=== PATIENT | female | born 1955 | race African-American/Black ===

== ENCOUNTER 2018-02-15 22:06 | Emergency (ER) | payer OTHER, SELFPAY ==
[2018-02-15 23:49] LABS: #Basophils 0.1 thou/uL (0.0-0.2); #Eosinphils 0.1 thou/uL (0.0-0.7); #Lymphocytes 3.3 thou/uL (1.20-3.40); #Monocytes 0.5 thou/uL (0.11-0.59); #Neutrophils 3.7 thou/uL (1.40-6.50); %Basophils 1.3 % (0.0-1.0); %Eosinophils 1.3 % (0.0-10.0); %Monocytes 6.9 % (0.0-10.0); %Neutrophils 47.6 % (42.0-75.0); Hemoglobin 12.5 g/dL (12.0-16.0); Mean Corpuscular HGB CONC 33.5 g/dL (32.0-36.0); Mean Corpuscular Hemoglobin 27.2 pg (27.0-31.0); Mean Corpuscular Volume 81.1 fL (78.0-98.0); Platelet Count 341 thou/uL (130-400); RBC Distribution Width 11.4 % (11.5-14.5); White Blood Cell (WBC) Count 7.7 thou/uL (4.8-10.8)
[2018-02-16 00:11] LABS: Anion Gap 15 mmol/L (10-20); BUN (Urea Nitrogen) 13 mg/dL (9.8-20.1); Calc. Creatinine Clearance 0 mL/min (70-130); Calcium 10.2 mg/dL (7.8-10.44); Carbon Dioxide 27 mmol/L (22-29); Chloride 96 mmol/L (98-107); Estimated GFR-MDRD 85; Glucose 283 mg/dL (70-105); Potassium 4.1 mmol/L (3.5-5.1); Sodium 134 mmol/L (136-145)
== END 2018-02-16 01:03 | disposition home or self-care (01) ==
LOC: ERS 22:06
DX: E11.65 Type 2 diabetes mellitus with hyperglycemia (principal); R20.2 Paresthesia of skin; E11.9 Type 2 diabetes mellitus without complications; I25.10 Atherosclerotic heart disease of native coronary artery without angina pectoris; F32.9 Major depressive disorder, single episode, unspecified; Z79.4 Long term (current) use of insulin
CPT/HCPCS: 36415; 36416; 80048; 85025; 99284

== ENCOUNTER 2021-04-11 15:36 | Emergency (ER) | payer SELFPAY ==
[2021-04-11 16:15] LABS: #Basophils 0.1 thou/uL (0.0-0.2); #Eosinphils 0.2 thou/uL (0.0-0.7); #Lymphocytes 5.2 thou/uL (1.20-3.40); #Neutrophils 7.4 thou/uL (1.40-6.50); %Basophils 0.4 % (0.0-1.0); %Eosinophils 1.4 % (0.0-10.0); %Lymphocytes 37.8 % (21.0-51.0); %Neutrophils 53.4 % (42.0-75.0); Mean Corpuscular HGB CONC 33.1 g/dL (32.0-36.0); Mean Corpuscular Hemoglobin 27.2 pg (27.0-31.0); Mean Corpuscular Volume 82.3 fL (78.0-98.0); Mean Platelet Volume 7.9 fL (7.4-10.4); Platelet Count 412 thou/uL (130-400); RBC Distribution Width 11.6 % (11.5-14.5); Red Blood Cell (RBC) Count 4.05 mill/uL (4.20-5.40); White Blood Cell (WBC) Count 13.8 thou/uL (4.8-10.8)
[2021-04-11 16:37] LABS: ALT (SGPT) 7 U/L (8-55); AST (SGOT) 8 U/L (5-34); Alkaline Phosphatase 87 U/L (40-110); Anion Gap 15 mmol/L (10-20); BUN (Urea Nitrogen) 15 mg/dL (9.8-20.1); Bilirubin, Total 0.2 mg/dL (0.2-1.2); Calc. Creatinine Clearance 0 mL/min (70-130); Carbon Dioxide 27 mmol/L (23-31); Chloride 101 mmol/L (98-107); Globulin 3.9 g/dL (2.4-3.5); Glucose 243 mg/dL (80-115); Potassium 4.5 mmol/L (3.5-5.1); Protein, Total 7.9 g/dL (5.8-8.1); Sodium 138 mmol/L (136-145)
[2021-04-11] MEDS ORDERED: cefTRIAXone\\ROCEPHIN 1 GM VIAL ONE (18:21)
== END 2021-04-11 20:07 | disposition home or self-care (01) ==
LOC: ERS 15:36
DX: L03.032 Cellulitis of left toe (principal); E11.65 Type 2 diabetes mellitus with hyperglycemia; Z79.899 Other long term (current) drug therapy; Z79.82 Long term (current) use of aspirin; I10 Essential (primary) hypertension
CPT/HCPCS: 36415; 80053; 83605; 85025; 96365; J0696

== ENCOUNTER 2021-04-28 08:09 | Emergency (ER) | payer SELFPAY ==
[2021-04-28] MEDS ORDERED: Ondansetron ODT 8 MG TAB ONE (08:34)
== END 2021-04-28 11:25 | disposition home or self-care (01) ==
LOC: ERS 08:09
DX: E11.65 Type 2 diabetes mellitus with hyperglycemia (principal); E11.621 Type 2 diabetes mellitus with foot ulcer; L97.529 Non-pressure chronic ulcer of other part of left foot with unspecified severity; R11.2 Nausea with vomiting, unspecified; I10 Essential (primary) hypertension; I25.10 Atherosclerotic heart disease of native coronary artery without angina pectoris
CPT/HCPCS: 36416; 74018; Q0162

== ENCOUNTER 2021-05-04 11:11 | Inpatient (IN) | payer SELFPAY ==
[2021-05-04 12:29] LABS: #Eosinphils 0.1 thou/uL (0.0-0.7); #Lymphocytes 2.3 thou/uL (1.20-3.40); #Monocytes 0.7 thou/uL (0.11-0.59); #Neutrophils 5.6 thou/uL (1.40-6.50); %Basophils 0.5 % (0.0-1.0); %Eosinophils 0.8 % (0.0-10.0); %Lymphocytes 26.8 % (21.0-51.0); %Monocytes 7.7 % (0.0-10.0); %Neutrophils 64.2 % (42.0-75.0); Hemoglobin 9.8 g/dL (12.0-16.0); Mean Corpuscular HGB CONC 33.6 g/dL (32.0-36.0); Mean Corpuscular Hemoglobin 27.1 pg (27.0-31.0); Mean Corpuscular Volume 80.8 fL (78.0-98.0); Mean Platelet Volume 7.8 fL (7.4-10.4); Platelet Count 438 thou/uL (130-400); RBC Distribution Width 11.4 % (11.5-14.5); Red Blood Cell (RBC) Count 3.62 mill/uL (4.20-5.40); White Blood Cell (WBC) Count 8.7 thou/uL (4.8-10.8)
[2021-05-04 12:35] LABS: Anion Gap 12 mmol/L (10-20); BUN (Urea Nitrogen) 30 mg/dL (9.8-20.1); Calc. Creatinine Clearance 0 mL/min (70-130); Calcium 9.7 mg/dL (7.8-10.44); Carbon Dioxide 24 mmol/L (23-31); Chloride 95 mmol/L (98-107); Glucose 205 mg/dL (80-115); Sodium 126 mmol/L (136-145)
[2021-05-04] MEDS ORDERED: HYDROcodone/Acetaminophen 5/325 mg Tablet ONE (14:14)
[2021-05-04] MEDS ORDERED: cefTRIAXone\\ROCEPHIN 1 GM VIAL ONE (14:14)
[2021-05-04] MEDS ORDERED: Ondansetron PF 4 MG/2 ML Vial IVP PRN (14:48)
[2021-05-04] MEDS ORDERED: Acetaminophen 325 MG TAB PO PRN (16:45)
[2021-05-04 16:53] LABS: SARS-CoV-2 NAA Rapid Test Not Detected (NotDetected)
[2021-05-04] MEDS ORDERED: Enoxaparin Sodium 40 MG/0.4 ML SYRINGE SC SCH (17:00)
[2021-05-04] MEDS ORDERED: Cefepime 2 GM in Sodium Chloride 0.9% 100 ML IVPB SCH (17:30)
[2021-05-04 18:20] VITALS: BMI 27.0
[2021-05-04] MEDS: Sodium Chloride 0.9% 1,000 ML IV SCH (18:53)
[2021-05-04] MEDS ORDERED: VANCOMYCIN 1.25 GM/250 ML BAG 1.25 GM in Premix Bag 1 BAG IVPB SCH (20:00)
[2021-05-04] MEDS ORDERED: Dicyclomine 10 MG CAP PO SCH (22:00)
[2021-05-04] MEDS ORDERED: Docusate 100 MG CAP PO SCH (22:00)
[2021-05-05] MEDS: Sodium Chloride 0.9% 1,000 ML IV SCH ×3 (05:23→20:05)
[2021-05-05] MEDS: Cefepime 2 GM in Sodium Chloride 0.9% 100 ML IVPB SCH ×2 (06:01→17:49)
[2021-05-05] MEDS: Docusate 100 MG CAP PO SCH ×2 (08:31→20:09)
[2021-05-05] MEDS: Enoxaparin Sodium 40 MG/0.4 ML SYRINGE SC SCH (08:35)
[2021-05-05 09:29] LABS: Hemoglobin A1c 9.6 % (4.0-6.0)
[2021-05-05 12:49] LABS: Iron Binding Capacity, Total 268 mcg/dL (265-497)
[2021-05-05 12:50] LABS: Iron 64 ug/dL (50-170)
[2021-05-05 12:59] LABS: Anion Gap 13 mmol/L (10-20); BUN (Urea Nitrogen) 17 mg/dL (9.8-20.1); Calc. Creatinine Clearance 56 mL/min (70-130); Calcium 9.8 mg/dL (7.8-10.44); Carbon Dioxide 21 mmol/L (23-31); Chloride 106 mmol/L (98-107); Glucose 190 mg/dL (80-115); Iron 66 ug/dL (50-170); Iron Binding Capacity, Total 275 mcg/dL (265-497); Potassium 5.3 mmol/L (3.5-5.1); Sodium 135 mmol/L (136-145)
[2021-05-05] MEDS ORDERED: Fentanyl 100 MCG/2 ML VIAL ONE ×2 (13:22→14:16)
[2021-05-05] MEDS ORDERED: PHENYLEPHRINE-NS 100 MCG/ML 10 ML SYRINGE ONE (13:34)
[2021-05-05] MEDS ORDERED: Lidocaine 1% PF 5 ML VIAL ONE (13:34)
[2021-05-05] MEDS ORDERED: PROPOFOL 200 MG/20 ML VIAL ONE (13:34)
[2021-05-05] MEDS ORDERED: Lidocaine 1% w/Epinephrine 1:100K 20 ML VIAL ONE (13:44)
[2021-05-05] MEDS ORDERED: Bupivacaine PF 0.5% 30 ML VIAL ONE (13:44)
[2021-05-05] MEDS ORDERED: Propofol 500 MG/50 ML VIAL ONE (13:46)
[2021-05-05] MEDS ORDERED: Promethazine HCl 25 MG/ML VIAL IVPB PRN (14:07)
[2021-05-05] MEDS ORDERED: Ondansetron HCl/PF 4 MG/2 ML Vial IVP PRN (14:07)
[2021-05-05] MEDS ORDERED: Promethazine HCl 25 MG/ML VIAL IM PRN (14:07)
[2021-05-05] MEDS: traMADol HCl 50 MG TAB PO PRN ×2 (16:22→20:06)
[2021-05-05] MEDS ORDERED: Dextrose 50% Abboject 50 ML SYRINGE SLOW IVP PRN (16:33)
[2021-05-05] MEDS ORDERED: Dextrose 5% in Water 1,000 ML IV PRN (16:33)
[2021-05-05] MEDS: HumaLOG 300 UNITS/3 ML VIAL SC PRN (17:31)
[2021-05-05 18:28] LABS: Vancomycin, Random Less than 1.1 ug/mL (See Comment)
[2021-05-05] MEDS: Gabapentin 300 MG CAP PO SCH (20:07)
[2021-05-05] MEDS: Polyethylene Glycol 3350 17 GM Packet PO SCH (20:09)
[2021-05-05] MEDS ORDERED: Vancomycin HCl 1.5 GM in Sodium Chloride 0.9% 250 ML 300 ML IVPB SCH (21:00)
[2021-05-05] MEDS: VANCOMYCIN 1.25 GM/250 ML BAG 1.25 GM in Premix Bag 1 BAG IVPB SCH (21:06)
[2021-05-06] MEDS: traMADol HCl 50 MG TAB PO PRN ×2 (02:04→20:37)
[2021-05-06 04:24] LABS: Anion Gap 12 mmol/L (10-20); BUN (Urea Nitrogen) 12 mg/dL (9.8-20.1); Calc. Creatinine Clearance 71 mL/min (70-130); Carbon Dioxide 18 mmol/L (23-31); Chloride 105 mmol/L (98-107); Glucose 185 mg/dL (80-115); Potassium 5.1 mmol/L (3.5-5.1); Sodium 130 mmol/L (136-145)
[2021-05-06] MEDS: Acetaminophen 500 MG TAB PO PRN ×2 (04:43→20:38)
[2021-05-06] MEDS: Cefepime 2 GM in Sodium Chloride 0.9% 100 ML IVPB SCH ×2 (06:05→19:45)
[2021-05-06] MEDS: Sodium Chloride 0.9% 1,000 ML IV SCH ×3 (06:05→20:46)
[2021-05-06] MEDS: Gabapentin 300 MG CAP PO SCH ×2 (08:33→20:39)
[2021-05-06] MEDS: Enoxaparin Sodium 40 MG/0.4 ML SYRINGE SC SCH (08:34)
[2021-05-06] MEDS: Docusate 100 MG CAP PO SCH ×2 (08:36→20:39)
[2021-05-06] MEDS: Amlodipine 5 MG TAB PO SCH (08:36)
[2021-05-06] MEDS: Polyethylene Glycol 3350 17 GM Packet PO SCH ×2 (08:37→20:40)
[2021-05-06] MEDS ORDERED: Lisinopril 10 MG TAB PO SCH (09:00)
[2021-05-06] MEDS: HumaLOG 300 UNITS/3 ML VIAL SC PRN ×2 (11:18→20:41)
[2021-05-06] MEDS ORDERED: GoLYTELY 4,000 ml Bottle PO SCH (15:30)
[2021-05-06] MEDS: VANCOMYCIN 1.25 GM/250 ML BAG 1.25 GM in Premix Bag 1 BAG IVPB SCH (20:40)
[2021-05-06] MEDS: Lantus 1000 UNITS/10 ML VIAL SC SCH (21:22)
[2021-05-07 04:26] LABS: Anion Gap 12 mmol/L (10-20); BUN (Urea Nitrogen) 8 mg/dL (9.8-20.1); Calc. Creatinine Clearance 74 mL/min (70-130); Calcium 9.5 mg/dL (7.8-10.44); Carbon Dioxide 24 mmol/L (23-31); Chloride 104 mmol/L (98-107); Glucose 141 mg/dL (80-115); Potassium 4.5 mmol/L (3.5-5.1); Sodium 135 mmol/L (136-145)
[2021-05-07] MEDS: Cefepime 2 GM in Sodium Chloride 0.9% 100 ML IVPB SCH (05:28)
[2021-05-07] MEDS: traMADol HCl 50 MG TAB PO PRN ×3 (05:33→15:41)
[2021-05-07] MEDS ORDERED: Lidocaine 1% PF 5 ML VIAL ONE (08:10)
[2021-05-07] MEDS ORDERED: PROPOFOL 200 MG/20 ML VIAL ONE (08:10)
[2021-05-07] MEDS: Aspirin 325 mg Enteric Coated Tablet PO SCH (09:00)
[2021-05-07] MEDS: Enoxaparin Sodium 40 MG/0.4 ML SYRINGE SC SCH (09:00)
[2021-05-07] MEDS: Amlodipine 5 MG TAB PO SCH (10:21)
[2021-05-07] MEDS: Polyethylene Glycol 3350 17 GM Packet PO SCH ×2 (10:22→20:53)
[2021-05-07] MEDS: Docusate 100 MG CAP PO SCH ×2 (10:22→20:53)
[2021-05-07] MEDS: Gabapentin 300 MG CAP PO SCH ×2 (10:33→20:49)
[2021-05-07] MEDS: Sodium Chloride 0.9% 1,000 ML IV SCH (10:47)
[2021-05-07] MEDS: Amoxicillin/Potassium Clav 875 MG TAB PO SCH (20:49)
[2021-05-07] MEDS: Acetaminophen 500 MG TAB PO PRN (20:49)
[2021-05-07] MEDS: Lantus 1000 UNITS/10 ML VIAL SC SCH (20:50)
[2021-05-08] MEDS: HumaLOG 300 UNITS/3 ML VIAL SC PRN ×3 (06:08→20:46)
[2021-05-08] MEDS: Gabapentin 300 MG CAP PO SCH ×2 (10:57→20:45)
[2021-05-08] MEDS: Amoxicillin/Potassium Clav 875 MG TAB PO SCH ×2 (10:57→20:45)
[2021-05-08] MEDS: Amlodipine 5 MG TAB PO SCH ×2 (10:58→11:12)
[2021-05-08] MEDS: Polyethylene Glycol 3350 17 GM Packet PO SCH ×2 (10:58→20:45)
[2021-05-08] MEDS: Enoxaparin Sodium 40 MG/0.4 ML SYRINGE SC SCH (10:58)
[2021-05-08] MEDS: Aspirin 325 mg Enteric Coated Tablet PO SCH (10:58)
[2021-05-08] MEDS: Docusate 100 MG CAP PO SCH ×2 (10:59→20:46)
[2021-05-08] MEDS: traMADol HCl 50 MG TAB PO PRN (11:00)
[2021-05-08] MEDS: Acetaminophen 500 MG TAB PO PRN (16:05)
[2021-05-08] MEDS: Lantus 1000 UNITS/10 ML VIAL SC SCH (20:45)
[2021-05-09] MEDS: HumaLOG 300 UNITS/3 ML VIAL SC PRN (06:12)
[2021-05-09] MEDS: Aspirin 325 mg Enteric Coated Tablet PO SCH (08:35)
[2021-05-09] MEDS: Docusate 100 MG CAP PO SCH (08:35)
[2021-05-09] MEDS: Amoxicillin/Potassium Clav 875 MG TAB PO SCH (08:35)
[2021-05-09] MEDS: Amlodipine 5 MG TAB PO SCH (08:35)
[2021-05-09] MEDS: Gabapentin 300 MG CAP PO SCH (08:35)
[2021-05-09] MEDS: Enoxaparin Sodium 40 MG/0.4 ML SYRINGE SC SCH (08:35)
[2021-05-09 08:49] VITALS: BP 131/60; TEMP 98.1
[2021-05-09] MEDS: Acetaminophen 500 MG TAB PO PRN (10:39)
[2021-05-09] MEDS: traMADol HCl 50 MG TAB PO PRN (10:40)
[2021-05-09] MEDS: Lantus 1000 UNITS/10 ML VIAL SC SCH (10:51)
== END 2021-05-09 15:05 | disposition home or self-care (01) | DRG 256 ==
LOC: ERS 11:11 → ONC 13:58
PROVIDERS: ADMIT Internal Medicine; ATTEND Internal Medicine
PROC: 0Y6U0Z1 Detachment at Left 3rd Toe, High, Open Approach (ICD-10-PCS; principal; 2021-05-05)
PROC: 0DJD8ZZ Inspection of Lower Intestinal Tract, Via Natural or Artificial Opening Endoscopic (ICD-10-PCS; 2021-05-07)
DX: E11.52 Type 2 diabetes mellitus with diabetic peripheral angiopathy with gangrene (principal); N17.9 Acute kidney failure, unspecified; E87.1 Hypo-osmolality and hyponatremia; I25.10 Atherosclerotic heart disease of native coronary artery without angina pectoris; F32.A Depression, unspecified; E11.628 Type 2 diabetes mellitus with other skin complications; K59.09 Other constipation; N18.9 Chronic kidney disease, unspecified; Z20.822 Contact with and (suspected) exposure to COVID-19; E86.0 Dehydration; E11.42 Type 2 diabetes mellitus with diabetic polyneuropathy; D63.1 Anemia in chronic kidney disease; K64.8 Other hemorrhoids; E11.22 Type 2 diabetes mellitus with diabetic chronic kidney disease; I12.9 Hypertensive chronic kidney disease with stage 1 through stage 4 chronic kidney disease, or unspecified chronic kidney disease; Z95.5 Presence of coronary angioplasty implant and graft; Z86.73 Personal history of transient ischemic attack (TIA), and cerebral infarction without residual deficits
CPT/HCPCS: 36415; 36416; 74018; 80048; 80202; 82728; 83036; 83540; 83550; 83605; 85025; 85652; 86140; 87040; 87149; 88305; 96374; J0692; J0696; J1650; J1815; J2704; J3010; J3370; J3490; J7050; S0020; U0002

== ENCOUNTER 2021-05-22 19:23 | Emergency (ER) | payer SELFPAY | END 2021-05-22 20:30 | disposition home or self-care (01) | LOC: ERS 19:23 | DX: T85.698A Other mechanical complication of other specified internal prosthetic devices, implants and grafts, initial encounter (principal); E11.9 Type 2 diabetes mellitus without complications; I10 Essential (primary) hypertension | CPT/HCPCS: 99282 ==